=== PATIENT | female | born 1960 | race Caucasian/White ===

== ENCOUNTER 2018-09-11 14:10 | Inpatient (IN) | payer OTHER ==
[~2018-09-11] VITALS: Ht 149.9 cm; Wt 41.8 kg
[2018-09-11] MEDS ORDERED: LORazepam 2 MG/ML, 1ML ONE ×2 (14:12→17:52)
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
--- NOTE | 2018-09-11 14:57 | NUR ---
LATE NOTE ENTRY FOR 1418: Pt brought in by EMS from work with c/o sudden onset of altered level of consiousness. Pt is alert and oriented to self, family members, and city. Pt unaware of time, situation that brought pt to ED, and is confused if she is "seeing my ", pt's spouse is as of July 2017. Pt and EMS deny trauma. Pt is tremulous and tearful. Pt repeats, "I am so embarassed. I don't know what happened. How did I get here." Pt's son at bedside. Pt's son reports in 2018 pt had a seizure and a stroke. Pt CMS intact. Pt denies cp, sob, n/v/d, or trauma. Pt denies numbness or tingling. Pt has negative Cinncinatti score by EMS. Pt connected to NIBP, stroke belt sander operator, and continous pulse ox. Both bed rails up for safety measures, call light within reach. PIV in place mud analysis well logging captain. Pt provided medication per EMAR. Pt ambulates with ED RN to bathroom with steady gait and balance.
[2018-09-11] MEDS ORDERED: SODIUM CHLORIDE FLUSH 10ML SYR IVF ONE (15:00)
[2018-09-11] MEDS ORDERED: LORazepam 2 MG/ML, 1ML IVPush ONE (15:00)
[2018-09-11 15:01] LABS: BASOPHILS % (AUTO) 0 % (0-1); EOSINOPHILS # (AUTO) 0.17 x10^3/uL (0-0.4); EOSINOPHILS % (AUTO) 2 % (1-7); LYMPHOCYTES # (AUTO) 1.41 x10^3/uL (1-3.4); LYMPHOCYTES % (AUTO) 18 % (22-44); MD NO; MEAN CORPUSCULAR HEMOGLOBIN 29.2 pg (27.0-34.8); MEAN CORPUSCULAR HGB CONC 32.4 g/dL (32.4-35.8); MEAN CORPUSCULAR VOLUME 90.3 fL (80-100); MEAN PLATELET VOLUME 7.7 fL (7.4-10.4); MONOCYTES # (AUTO) 0.42 x10^3/uL (0.2-0.8); MONOCYTES % (AUTO) 5 % (2-9); NEUTROPHILS # (AUTO) 5.77 x10^3/uL (1.8-6.8); NEUTROPHILS % (AUTO) 74 % (42-75); PLATELET COUNT 303 x10^3/uL (130-400); RED BLOOD COUNT 4.84 x10^6/uL (3.82-5.3); RED CELL DISTRIBUTION WIDTH 14.3 % (9.6-15.2)
[2018-09-11 15:06] LABS: ALBUMIN 4.6 g/dL (3.4-5.0); ANION GAP 5 mmol/L (5-15); CALCIUM 9.6 mg/dL (8.5-10.1); CHLORIDE 105 mmol/L (98-107)
[2018-09-11 15:12] LABS: ALANINE AMINOTRANSFERASE 25 U/L (12-78); ALKALINE PHOSPHATASE 77 U/L (45-117); BILIRUBIN,TOTAL 0.6 mg/dL (0.2-1.0); CREATININE 0.76 mg/dL (0.55-1.02); TOTAL PROTEIN 8.3 g/dL (6.4-8.2)
--- NOTE | 2018-09-11 15:18 | NUR ---
Pt back to room from CT. Pt resting on gurney connected to bus monitor, NIBP, and continous pulse ox. NADN. Pt's son at bedside. No needs requested at this time.
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
[2018-09-11 16:33] LABS: HCT (SEDRATE) 43.8 % (34.6-47.8)
[2018-09-11] MEDS ORDERED: ONDANSETRON 2MG/ML, 2ML IVPush PRN (17:00)
--- NOTE | 2018-09-11 17:17 | NUR ---
Pt transported on gurney to [facility]. Both bedrails up for safety measures.
--- NOTE | 2018-09-11 17:17 | NUR ---
Provided report to DAYANNA Mojica. All questions answered. Pt ready to transfer to room 484-2, called MRI to see if they could transfer pt to floor after MRI. No answer at MRI.
--- NOTE | 2018-09-11 17:24 | NUR ---
Spoke to MRI, per heat treatment technician, "If I can get a transporter after the scan in 20 minutes I will, if not she's coming back to the ER." Throughput RN aware.
--- NOTE | 2018-09-11 18:17 | NUR ---
THROUGHTPUT RN: PT REFUSING SERVICE ADMINISTRATOR FOR TRANSPORT TO FLOOR
--- NOTE | 2018-09-11 18:24 | NUR ---
Pt transported from ED to floor and left with all personal belongings. Pt's son at bedside.
[2018-09-11 18:35] LABS: INTERNATIONAL NORMALIZED RATIO 0.96 (0.93-1.1); PROTHROMBIN TIME 10.1 Seconds (9.6-11.5)
[2018-09-11 18:42] LABS: C-REACTIVE PROTEIN, QUANT 0.13 mg/dL (0.02-0.49)
[2018-09-11 19:07] LABS: THYROID STIMULATING HORMONE 1.38 mIU/L (0.358-3.740)
[2018-09-11] MEDS: ACETAMINOPHEN 650 MG/20.3 ML UDC PO PRN (19:44)
[2018-09-11] MEDS: SODIUM CHLORIDE 0.9% 1,000 ML IV SCH (20:34)
[2018-09-11 20:35] VITALS: BP 159/93
[2018-09-11] MEDS: ATORVASTATIN 40 MG TABLET PO SCH (20:47)
[2018-09-11 20:50] VITALS: BP 148/89
[2018-09-11 20:56] LABS: MICROSCOPIC AUTO
[2018-09-11 20:58] LABS: CULTURE INDICATED? NO
[2018-09-11 21:05] LABS: AMPHETAMINE SCREEN, URINE Negative (Negative); BARBITURATE SCREEN, URINE Negative (Negative); BENZODIAZEPINE SCREEN, URINE Negative (Negative); CANNABINOID SCREEN, URINE Positive (Negative); COCAINE SCREEN, URINE Negative (Negative); METHADONE SCREEN, URINE Negative (Negative); OPIATE SCREEN, URINE Negative (Negative)
[2018-09-11 22:42] VITALS: BP 142/79
[2018-09-12] VITALS (10 sets, daily range): BP systolic 109–157; BP diastolic 68–85
[2018-09-12] MEDS: ACETAMINOPHEN 650 MG/20.3 ML UDC PO PRN ×2 (04:55→21:26)
[2018-09-12 05:23] LABS: CHOL/HDL RATIO 2.5; LDL/HDL RATIO 1.3 (0.5-3.0)
[2018-09-12] MEDS: SODIUM CHLORIDE 0.9% 1,000 ML IV SCH (07:27)
[2018-09-12] MEDS: ASPIRIN 81 MG TABLET CHEW PO/NG SCH (08:46)
[2018-09-12] MEDS ORDERED: ASPI81TA45 PO (14:01)
[2018-09-12] MEDS ORDERED: ATOR40TA78 PO (14:01)
[2018-09-12] MEDS: ATORVASTATIN 40 MG TABLET PO SCH (21:26)
[2018-09-13] MEDS ORDERED: NICOTINE 14MG/24 HR PATCH.TD24 TD SCH (01:00)
[2018-09-13 01:44] VITALS: BP 131/75
[2018-09-13 04:11] VITALS: BP 128/78
[2018-09-13 07:50] VITALS: BP 136/81
[2018-09-13] MEDS: ASPIRIN 81 MG TABLET CHEW PO/NG SCH (08:38)
== END 2018-09-13 10:47 | disposition home or self-care (01) | DRG 72 ==
LOC: ED 15:06 → EDIP 16:15 → 4EST 18:23 → DCLOUNGE 09-13 10:35
PROVIDERS: ADMIT Internal Medicine; ATTEND Internal Medicine
DX: G45.4 Transient global amnesia (principal); F17.210 Nicotine dependence, cigarettes, uncomplicated; F12.90 Cannabis use, unspecified, uncomplicated; R00.0 Tachycardia, unspecified; Z86.73 Personal history of transient ischemic attack (TIA), and cerebral infarction without residual deficits; Z85.828 Personal history of other malignant neoplasm of skin; Z88.0 Allergy status to penicillin
CPT/HCPCS: 36415; 70450; 70553; 80053; 80061; 80307; 81001; 82140; 82607; 84443; 85025; 85610; 85651; 85730; 86140; 93005; 93306; 93880; G0378; J7030